=== PATIENT | male | born 1955 | race Caucasian/White ===

== ENCOUNTER 2017-11-08 21:17 | Emergency (ER) | payer MEDICARE, OTHER ==
[~2017-11-08] VITALS: Ht 198.1 cm; Wt 140.6 kg
[~2017-11-08 21:17] MED LIST: AMPYRA; AZAT50 PO; BACL20; CALCAVITD PO; CALCIUM CITRATE; COUMADIN; DIAZ10 PO; FISH OIL; FISH1000 PO; GABA300 PO; GABAPENTIN; LIORESAL; MEDICAL CANNABIS; OXYACE5T PO; SOLUMEDROL; TAMS.4ER PO; TIZA4 PO; TRAMADOL; TYSABRI; VALIUM; VIAGRA; VITAMIN B 12; WARF7.5 PO; ZANAFLEX
[2017-11-08 21:42] LABS: Source, Urine Clean Catch
[2017-11-08 21:47] LABS: Bilirubin, Urine Neg (Neg); Blood, Urine 4+ (Neg); Glucose Qualitative, Urine Neg (Neg); Ketones, Urine Neg (Neg); Leukocyte Esterase, Urine 3+ (Neg); Nitrite, Urine Neg (Neg); Protein, Urine Neg (Neg); Specific Gravity, Urine 1.015 (1.003-1.022); Urobilinogen, Urine NORM (Normal)
[2017-11-08 21:52] LABS: Appearance, Urine Clear (Clear); Color, Urine Yellow (P-Yellow)
[2017-11-08 21:54] LABS: White Blood Cells, Urine 25-50 /hpf (0-5)
[2017-11-08 21:55] LABS: Bacteria Mod /hpf; Red Blood Cells, Urine 0-2 /hpf (0-2); Squamous Epithelial Cells Rare /hpf (Few)
[2017-11-08] MEDS ORDERED: Cipro500 MG PO (22:40)
== END 2017-11-08 23:08 | disposition home or self-care (01) ==
LOC: ER 21:17
PROVIDERS: Emergency Medicine
DX: N39.0 Urinary tract infection, site not specified (principal); Z79.899 Other long term (current) drug therapy; Z79.891 Long term (current) use of opiate analgesic
CPT/HCPCS: 36415; 81001; 87077; 87086; 87186; 99283

== ENCOUNTER → 2020-01-24 | Outpatient (CLI) | payer MEDICARE, OTHER ==
[~2020-01-24] MED LIST changes: +CALCITRATE200 M1 PO; -CALCIUM CITRATE; -COUMADIN; +Cipro500 MG PO; +DIAZ5 PO; +DICLOFENAC SOD100 G1 TOP; -FISH OIL; +FISH OIL 1,2001 EAC1 PO; -GABAPENTIN; +Ketoconazole15 GM TOP; -LIORESAL; +LIORESAL I ITR; -VALIUM; -VITAMIN B 12; +VITAMIN B122500 MC2 PO; +VITAMIN D325 MC3 PO; +WARF5 PO; +[UNRECOGNIZED DRUG - OTHER] IV
[2020-01-24 16:14] LABS: Source, Urine Clean Catch
[2020-01-24 19:13] LABS: Bilirubin, Urine Neg (Neg); Blood, Urine 2+ (Neg); Glucose Qualitative, Urine Neg (Neg); Ketones, Urine Neg (Neg); Leukocyte Esterase, Urine Neg (Neg); Nitrite, Urine Neg (Neg); Protein, Urine Neg (Neg); Specific Gravity, Urine 1.005 (1.003-1.022); Urobilinogen, Urine NORM (Normal)
[2020-01-24 19:20] LABS: Appearance, Urine Clear (Clear); Color, Urine Yellow (P-Yellow)
[2020-01-24 19:21] LABS: Bacteria Few /hpf; Calcium Oxalate Crystals Few /hpf; Red Blood Cells, Urine 0-2 /hpf (0-2); Squamous Epithelial Cells Rare /hpf (Few); White Blood Cells, Urine 0-2 /hpf (0-5)
== END | disposition home or self-care (01) ==
LOC: LAB 16:12 → LAB SHORT 16:12 → EDSTATUS 01-23 15:45 → LAB FUT 01-23 15:45
PROVIDERS: Internal Medicine Hematology & Oncology
DX: R32 Unspecified urinary incontinence (principal)
CPT/HCPCS: 81001

== ENCOUNTER → 2020-05-07 | Outpatient (CLI) | payer MEDICARE, OTHER ==
[2020-05-07 10:53] LABS: International Normalized Ratio 1.44; Prothrombin Time Results 15.1 Sec (9.7-11.5)
== END | disposition home or self-care (01) ==
LOC: LAB SHORT 10:32 → LAB 10:32
PROVIDERS: Internal Medicine Hematology & Oncology
DX: D68.2 Hereditary deficiency of other clotting factors (principal)
CPT/HCPCS: 85610

== ENCOUNTER 2020-08-06 18:34 | Emergency (ER) | payer MEDICARE, OTHER ==
[~2020-08-06] VITALS: Ht 198.1 cm; Wt 131.5 kg
[~2020-08-06 18:34] MED LIST changes: -CEFD300 PO; -CRANBERRY500 M1 PO; -FISH OIL-VIT D1 EACH PO
[2020-08-06 19:47] LABS: BASOPHILS ABSOLUTE AUTO 0.04 K/mm3 (0.00-0.23); BASOPHILS PERCENT AUTO 0 % (0-2); EOSINOPHILS ABSOLUTE AUTO 0.06 K/mm3 (0.00-0.68); EOSINOPHILS PERCENT AUTO 1 % (0-6); Hematocrit 49.2 % (37.0-53.0); Hemoglobin 15.4 g/dL (13.5-17.5); IMMATURE GRAN ABSOLUTE AUTO 0.03 K/mm3 (0.00-0.10); IMMATURE GRAN PERCENT AUTO 0 % (0-1); LYMPHOCYTES ABSOLUTE AUTO 0.88 K/mm3 (0.84-5.20); LYMPHOCYTES PERCENT AUTO 8 % (21-46); MONOCYTES ABSOLUTE AUTO 1.09 K/mm3 (0.16-1.47); MONOCYTES PERCENT AUTO 10 % (4-13); Mean Corpuscular HGB 27.4 pg (26.0-34.0); Mean Corpuscular HGB Conc 31.3 g/dL (31.5-36.5); Mean Corpuscular Volume 87 fL (80-100); Mean Platelet Volume 11.1 fL (9.1-12.4); NEUTROPHILS ABSOLUTE AUTO 8.52 K/mm3 (1.96-9.15); NEUTROPHILS PERCENT AUTO 80 % (41-73); Platelet Count 162 K/mm3 (150-400); RDW Coefficient Variation 15.9 % (11.7-14.2); RDW Standard Deviation 51.2 fL (35.1-46.3); Red Blood Cell Count 5.63 M/mm3 (4.30-5.90); White Blood Cell Count 10.62 K/mm3 (4.00-11.30)
[2020-08-06 19:59] LABS: Alanine Aminotransfer (ALT/SGP 37 U/L (12-78); Albumin, Blood 3.3 g/dL (3.4-5.0); Albumin/Globulin Ratio 0.9 (0.8-1.8); Alk Phos 119 U/L (50-136); Anion Gap 2 mmol/L (6-16); Aspartate Aminotrans (AST/SGOT 22 U/L (12-37); Bilirubin, Total 0.9 mg/dL (0.1-1.0); Blood Urea Nitrogen 14 mg/dL (8-24); CO2, Blood 31 mmol/L (21-32); Calcium, Blood 9.1 mg/dL (8.5-10.1); Chloride, Blood 106 mmol/L (98-108); Creatinine, Blood 0.41 mg/dL (0.60-1.20); Globulin, Blood 3.7 g/dL (2.2-4.0); Glomerular Filtration Rate >60 (60-); Glucose, Blood 109 mg/dL (70-99); Potassium, Blood 4.4 mmol/L (3.5-5.5); Sodium, Blood 139 mmol/L (136-145)
[2020-08-06] MEDS ORDERED: CRANBERRY500 M1 PO (20:44)
[2020-08-06] MEDS ORDERED: FISH OIL-VIT D1 EACH PO (20:45)
[2020-08-06 21:44] LABS: Influenza A, PCR Negative (NEGATIVE); Influenza B, PCR Negative (NEGATIVE); Resp Syncytial Virus, PCR Negative (NEGATIVE); SARS-Cov-2 (COVID-19) PCR, MMC Negative (NEGATIVE)
[2020-08-06] MEDS ORDERED: CEFD300 PO (21:50)
== END 2020-08-06 22:35 | disposition home or self-care (01) ==
LOC: ER 18:34
PROVIDERS: Emergency Medicine
DX: N39.0 Urinary tract infection, site not specified (principal); Z79.899 Other long term (current) drug therapy; Z79.01 Long term (current) use of anticoagulants; Z86.711 Personal history of pulmonary embolism; Z20.822 Contact with and (suspected) exposure to COVID-19
CPT/HCPCS: 0241U; 36415; 71045; 80053; 81001; 85025; 87077; 87086; 87186; 96365; 99283-25; J0696

== ENCOUNTER → 2020-08-06 | Outpatient (CLI) | payer MEDICARE, OTHER ==
[~2020-08-06] MED LIST changes: +CEFD300 PO; +CRANBERRY500 M1 PO; +FISH OIL-VIT D1 EACH PO
[2020-08-06 15:16] LABS: Appearance, Urine Hazy (Clear); Bilirubin, Urine Neg (Neg); Blood, Urine 2+ (Neg); Color, Urine Yellow (P-Yellow); Glucose Qualitative, Urine Neg (Neg); Ketones, Urine Neg (Neg); Leukocyte Esterase, Urine 3+ (Neg); Nitrite, Urine Pos (Neg); Protein, Urine Neg (Neg); Urobilinogen, Urine NORM (Normal)
[2020-08-06 15:26] LABS: White Blood Cells, Urine TNTC /hpf (0-5)
[2020-08-06 15:27] LABS: Bacteria Many /hpf; Squamous Epithelial Cells Few /hpf (Few)
== END | disposition home or self-care (01) ==
LOC: PLD 10:00 → LAB SHORT 10:00 → LAB FUT 08-06 11:25
PROVIDERS: Internal Medicine Hematology & Oncology
DX: R32 Unspecified urinary incontinence (principal); R33.9 Retention of urine, unspecified; R50.9 Fever, unspecified
CPT/HCPCS: 81001; 87077; 87086; 87186

== ENCOUNTER → 2020-09-11 | Outpatient (CLI) | payer MEDICARE, OTHER ==
[~2020-09-11] MED LIST changes: +CEFD300 PO; +CRANBERRY500 M1 PO; +FISH OIL-VIT D1 EACH PO
[2020-09-11 13:39] LABS: Source, Urine Clean Catch
[2020-09-11 18:41] LABS: Appearance, Urine Hazy (Clear); Bilirubin, Urine Neg (Neg); Blood, Urine 4+ (Neg); Color, Urine Yellow (P-Yellow); Glucose Qualitative, Urine Neg (Neg); Ketones, Urine 1+ (Neg); Leukocyte Esterase, Urine 3+ (Neg); Nitrite, Urine Pos (Neg); Protein, Urine 1+ (Neg); Urobilinogen, Urine NORM (Normal)
[2020-09-11 18:49] LABS: Bacteria Many /hpf; Red Blood Cells, Urine 0-2 /hpf (0-2); Squamous Epithelial Cells Few /hpf (Few); White Blood Cells, Urine TNTC /hpf (0-5)
== END | disposition home or self-care (01) ==
LOC: LAB SHORT 13:37 → LAB 13:37
PROVIDERS: Internal Medicine Hematology & Oncology
DX: R53.81 Other malaise (principal)
CPT/HCPCS: 81001; 87086

== ENCOUNTER 2020-11-12 00:12 | Day surgery (SDC) | payer MEDICARE, OTHER | END 2020-11-12 22:52 | disposition home or self-care (01) | LOC: WOUND 00:12 | DX: L89.314 Pressure ulcer of right buttock, stage 4 (principal); G82.21 Paraplegia, complete | CPT/HCPCS: G0463 ==

== ENCOUNTER 2020-11-26 00:19 | Day surgery (SDC) | payer MEDICARE, OTHER | END 2020-11-26 22:58 | disposition home or self-care (01) | LOC: WOUND 00:19 | DX: L89.314 Pressure ulcer of right buttock, stage 4 (principal); G82.21 Paraplegia, complete ==

== ENCOUNTER 2020-12-10 00:37 | Day surgery (SDC) | payer MEDICARE, OTHER | END 2020-12-10 22:58 | disposition home or self-care (01) | LOC: WOUND 00:37 | DX: L89.314 Pressure ulcer of right buttock, stage 4 (principal); G82.21 Paraplegia, complete | CPT/HCPCS: G0463 ==

== ENCOUNTER 2020-12-17 00:24 | Day surgery (SDC) | payer MEDICARE, OTHER | END 2020-12-17 23:14 | disposition home or self-care (01) | LOC: WOUND 00:24 | DX: S31.819A Unspecified open wound of right buttock, initial encounter (principal); G82.21 Paraplegia, complete; X58.XXXA Exposure to other specified factors, initial encounter | CPT/HCPCS: A9270 ==

== ENCOUNTER 2020-12-24 00:38 | Day surgery (SDC) | payer MEDICARE, OTHER | END 2020-12-25 02:19 | disposition home or self-care (01) | LOC: WOUND 00:38 | DX: L89.314 Pressure ulcer of right buttock, stage 4 (principal); G82.21 Paraplegia, complete | CPT/HCPCS: A9270; G0463 ==

== ENCOUNTER 2020-12-31 00:35 | Day surgery (SDC) | payer MEDICARE, OTHER | END 2020-12-31 23:34 | disposition home or self-care (01) | LOC: WOUND 00:35 | DX: L89.314 Pressure ulcer of right buttock, stage 4 (principal); G82.21 Paraplegia, complete | CPT/HCPCS: A9270 ==

== ENCOUNTER 2021-01-08 04:18 | Day surgery (SDC) | payer MEDICARE, OTHER | END 2021-01-08 22:49 | disposition home or self-care (01) | LOC: WOUND 04:18 | DX: L89.314 Pressure ulcer of right buttock, stage 4 (principal); G82.21 Paraplegia, complete | CPT/HCPCS: A9270; G0463 ==

== ENCOUNTER 2021-01-14 07:00 | Day surgery (SDC) | payer MEDICARE, OTHER | END 2021-01-14 23:00 | disposition home or self-care (01) | LOC: WOUND 07:00 | DX: L89.314 Pressure ulcer of right buttock, stage 4 (principal); G82.21 Paraplegia, complete | CPT/HCPCS: G0463 ==

== ENCOUNTER 2021-01-21 01:10 | Day surgery (SDC) | payer MEDICARE, OTHER | END 2021-01-21 22:53 | disposition home or self-care (01) | LOC: WOUND 01:10 | DX: L89.314 Pressure ulcer of right buttock, stage 4 (principal); G82.21 Paraplegia, complete | CPT/HCPCS: A9270 ==

== ENCOUNTER 2021-01-28 02:41 | Day surgery (SDC) | payer MEDICARE, OTHER | END 2021-01-28 23:04 | disposition home or self-care (01) | LOC: WOUND 02:41 | DX: L89.313 Pressure ulcer of right buttock, stage 3 (principal); G82.21 Paraplegia, complete | CPT/HCPCS: A9270; G0463 ==

== ENCOUNTER 2021-02-04 09:30 | Day surgery (SDC) | payer MEDICARE, OTHER | END 2021-02-04 22:59 | disposition home or self-care (01) | LOC: WOUND 09:30 | DX: L89.313 Pressure ulcer of right buttock, stage 3 (principal); G82.21 Paraplegia, complete | CPT/HCPCS: A9270 ==

== ENCOUNTER → 2021-02-08 | Outpatient (CLI) | payer MEDICARE, OTHER ==
[2021-02-08 17:58] LABS: Appearance, Urine Clear (Clear); Bilirubin, Urine Neg (Neg); Blood, Urine 2+ (Neg); Color, Urine Yellow (P-Yellow); Glucose Qualitative, Urine Neg (Neg); Ketones, Urine Neg (Neg); Leukocyte Esterase, Urine Neg (Neg); Nitrite, Urine Neg (Neg); Protein, Urine Neg (Neg); Specific Gravity, Urine 1.005 (1.003-1.022); Urobilinogen, Urine NORM (Normal)
[2021-02-08 18:06] LABS: Bacteria Few /hpf; Squamous Epithelial Cells Few /hpf (Few); White Blood Cells, Urine 0-2 /hpf (0-5)
== END | disposition home or self-care (01) ==
LOC: LAB 14:40 → LAB SHORT 14:40
PROVIDERS: Internal Medicine Hematology & Oncology
DX: R50.9 Fever, unspecified (principal); R32 Unspecified urinary incontinence
CPT/HCPCS: 81001

== ENCOUNTER 2021-02-11 00:10 | Day surgery (SDC) | payer MEDICARE, OTHER | END 2021-02-11 22:54 | disposition home or self-care (01) | LOC: WOUND 00:10 | DX: L89.313 Pressure ulcer of right buttock, stage 3 (principal); G82.21 Paraplegia, complete | CPT/HCPCS: G0463; J0696 ==

== ENCOUNTER 2021-02-18 02:42 | Day surgery (SDC) | payer MEDICARE, OTHER | END 2021-02-18 23:57 | disposition home or self-care (01) | LOC: WOUND 02:42 | DX: L89.313 Pressure ulcer of right buttock, stage 3 (principal); L03.115 Cellulitis of right lower limb; G82.21 Paraplegia, complete | CPT/HCPCS: A9270; G0463; J0696 ==

== ENCOUNTER 2021-02-25 02:15 | Day surgery (SDC) | payer MEDICARE, OTHER | END 2021-02-25 23:25 | disposition home or self-care (01) | LOC: WOUND 02:15 | DX: L89.313 Pressure ulcer of right buttock, stage 3 (principal); G82.21 Paraplegia, complete; L03.115 Cellulitis of right lower limb | CPT/HCPCS: G0463 ==

== ENCOUNTER 2021-03-13 02:19 | Day surgery (SDC) | payer MEDICARE, OTHER | END 2021-03-13 23:46 | disposition home or self-care (01) | LOC: WOUND 02:19 | DX: L89.313 Pressure ulcer of right buttock, stage 3 (principal); G82.20 Paraplegia, unspecified; L03.115 Cellulitis of right lower limb | CPT/HCPCS: A9270 ==

== ENCOUNTER 2021-03-26 03:52 | Day surgery (SDC) | payer MEDICARE, OTHER | END 2021-03-26 23:42 | disposition home or self-care (01) | LOC: WOUND 03:52 | DX: L89.313 Pressure ulcer of right buttock, stage 3 (principal); G82.21 Paraplegia, complete; L03.115 Cellulitis of right lower limb | CPT/HCPCS: A9270 ==

== ENCOUNTER 2021-04-15 03:04 | Day surgery (SDC) | payer MEDICARE, OTHER | END 2021-04-15 22:52 | disposition home or self-care (01) | LOC: WOUND 03:04 | DX: L89.313 Pressure ulcer of right buttock, stage 3 (principal); L03.115 Cellulitis of right lower limb; G82.21 Paraplegia, complete | CPT/HCPCS: A9270; G0463 ==

== ENCOUNTER 2021-05-06 06:01 | Day surgery (SDC) | payer MEDICARE, OTHER | END 2021-05-06 23:10 | disposition home or self-care (01) | LOC: WOUND 06:01 | DX: L89.313 Pressure ulcer of right buttock, stage 3 (principal); G82.21 Paraplegia, complete; L03.115 Cellulitis of right lower limb | CPT/HCPCS: A9270; G0463 ==

== ENCOUNTER 2021-06-10 04:12 | Day surgery (SDC) | payer MEDICARE, OTHER | END 2021-06-10 23:08 | disposition home or self-care (01) | LOC: WOUND 04:12 | DX: L89.313 Pressure ulcer of right buttock, stage 3 (principal); L03.115 Cellulitis of right lower limb; G82.21 Paraplegia, complete | CPT/HCPCS: A9270; G0463 ==

== ENCOUNTER 2021-07-12 07:36 | Day surgery (SDC) | payer MEDICARE, OTHER | END 2021-07-12 23:48 | disposition home or self-care (01) | LOC: WOUND 07:36 | DX: L89.313 Pressure ulcer of right buttock, stage 3 (principal); G82.21 Paraplegia, complete; L03.115 Cellulitis of right lower limb | CPT/HCPCS: A9270; G0463 ==

== ENCOUNTER 2021-07-29 03:20 | Day surgery (SDC) | payer MEDICARE, OTHER | END 2021-07-29 23:28 | disposition home or self-care (01) | LOC: WOUND 03:20 | DX: S31.819A Unspecified open wound of right buttock, initial encounter (principal); L89.313 Pressure ulcer of right buttock, stage 3; G82.21 Paraplegia, complete; L03.115 Cellulitis of right lower limb; X58.XXXA Exposure to other specified factors, initial encounter | CPT/HCPCS: A9270; G0463 ==

== ENCOUNTER 2021-08-12 02:58 | Day surgery (SDC) | payer MEDICARE, OTHER | END 2021-08-12 23:24 | disposition home or self-care (01) | LOC: WOUND 02:58 | DX: S31.819A Unspecified open wound of right buttock, initial encounter (principal); L89.313 Pressure ulcer of right buttock, stage 3; G82.21 Paraplegia, complete; L03.115 Cellulitis of right lower limb; Z99.3 Dependence on wheelchair; X58.XXXA Exposure to other specified factors, initial encounter | CPT/HCPCS: A9270; G0463 ==

== ENCOUNTER 2021-08-26 01:36 | Day surgery (SDC) | payer MEDICARE, OTHER | END 2021-08-26 23:25 | disposition home or self-care (01) | LOC: WOUND 01:36 | DX: S31.819A Unspecified open wound of right buttock, initial encounter (principal); L89.313 Pressure ulcer of right buttock, stage 3; G82.21 Paraplegia, complete; L03.115 Cellulitis of right lower limb; X58.XXXA Exposure to other specified factors, initial encounter | CPT/HCPCS: A9270; G0463 ==

== ENCOUNTER 2021-09-09 05:48 | Day surgery (SDC) | payer MEDICARE, OTHER | END 2021-09-09 23:27 | disposition home or self-care (01) | LOC: WOUND 05:48 | DX: L89.313 Pressure ulcer of right buttock, stage 3 (principal); G82.21 Paraplegia, complete; L03.115 Cellulitis of right lower limb | CPT/HCPCS: A9270; G0463 ==

== ENCOUNTER → 2021-09-11 | Outpatient (CLI) | payer MEDICARE, OTHER ==
[2021-09-11 15:00] LABS: Source, Urine Clean Catch
[2021-09-11 19:00] LABS: Bilirubin, Urine Neg (Neg); Blood, Urine 4+ (Neg); Glucose Qualitative, Urine Neg (Neg); Ketones, Urine Neg (Neg); Leukocyte Esterase, Urine Neg (Neg); Nitrite, Urine Neg (Neg); Protein, Urine Neg (Neg); Urobilinogen, Urine 1+ (Normal)
[2021-09-11 19:08] LABS: Appearance, Urine Hazy (Clear); Color, Urine Pale Yellow (P-Yellow)
[2021-09-11 19:09] LABS: Bacteria Rare /hpf; Squamous Epithelial Cells Rare /hpf (Few); White Blood Cells, Urine 0-2 /hpf (0-5)
[2021-09-11 19:29] LABS: BASOPHILS ABSOLUTE AUTO 0.04 K/mm3 (0.00-0.23); BASOPHILS PERCENT AUTO 0 % (0-2); EOSINOPHILS ABSOLUTE AUTO 0.03 K/mm3 (0.00-0.68); EOSINOPHILS PERCENT AUTO 0 % (0-6); Hemoglobin 16.7 g/dL (13.5-17.5); IMMATURE GRAN ABSOLUTE AUTO 0.04 K/mm3 (0.00-0.10); IMMATURE GRAN PERCENT AUTO 0 % (0-1); LYMPHOCYTES ABSOLUTE AUTO 0.44 K/mm3 (0.84-5.20); LYMPHOCYTES PERCENT AUTO 4 % (21-46); MONOCYTES ABSOLUTE AUTO 0.52 K/mm3 (0.16-1.47); MONOCYTES PERCENT AUTO 5 % (4-13); Mean Corpuscular HGB 29.7 pg (26.0-34.0); Mean Corpuscular HGB Conc 32.7 g/dL (31.5-36.5); Mean Corpuscular Volume 91 fL (80-100); Mean Platelet Volume 11.4 fL (9.1-12.4); NEUTROPHILS ABSOLUTE AUTO 9.54 K/mm3 (1.96-9.15); NEUTROPHILS PERCENT AUTO 90 % (41-73); Platelet Count 136 K/mm3 (150-400); RDW Coefficient Variation 14.2 % (11.7-14.2); RDW Standard Deviation 47.7 fL (35.1-46.3); Red Blood Cell Count 5.63 M/mm3 (4.30-5.90); White Blood Cell Count 10.61 K/mm3 (4.00-11.30)
[2021-09-11 19:47] LABS: Alanine Aminotransfer (ALT/SGP 32 U/L (12-78); Albumin, Blood 3.5 g/dL (3.4-5.0); Albumin/Globulin Ratio 0.9 (0.8-1.8); Alk Phos 107 U/L (50-136); Anion Gap 6 mmol/L (6-16); Aspartate Aminotrans (AST/SGOT 21 U/L (12-37); Bilirubin, Total 1.3 mg/dL (0.1-1.0); Blood Urea Nitrogen 11 mg/dL (8-24); Bun/Creatinine Ratio 31.8 (12.0-20.0); CO2, Blood 33 mmol/L (21-32); Calcium, Blood 9.3 mg/dL (8.5-10.1); Chloride, Blood 96 mmol/L (98-108); Creatinine, Blood 0.35 mg/dL (0.60-1.20); Globulin, Blood 3.8 g/dL (2.2-4.0); Glomerular Filtration Rate >60 (60-); Glucose, Blood 119 mg/dL (70-99); Potassium, Blood 4.1 mmol/L (3.5-5.5); Sodium, Blood 135 mmol/L (136-145); Total Protein, Blood 7.3 g/dL (6.4-8.2)
== END | disposition home or self-care (01) ==
LOC: LAB 14:55 → LAB SHORT 14:55
PROVIDERS: Internal Medicine Hematology & Oncology; Psychiatry & Neurology Neurology
DX: R30.0 Dysuria (principal)
CPT/HCPCS: 80053; 81001; 85025

== ENCOUNTER 2021-09-23 01:18 | Day surgery (SDC) | payer MEDICARE, OTHER | END 2021-09-23 23:31 | disposition home or self-care (01) | LOC: WOUND 01:18 | DX: L89.313 Pressure ulcer of right buttock, stage 3 (principal); G82.21 Paraplegia, complete; L03.115 Cellulitis of right lower limb | CPT/HCPCS: A9270; G0463 ==

== ENCOUNTER 2021-10-07 00:57 | Day surgery (SDC) | payer MEDICARE, OTHER | END 2021-10-07 23:13 | disposition home or self-care (01) | LOC: WOUND 00:57 | DX: L89.313 Pressure ulcer of right buttock, stage 3 (principal); G82.21 Paraplegia, complete; L03.115 Cellulitis of right lower limb | CPT/HCPCS: A9270 ==

== ENCOUNTER 2021-10-21 01:46 | Day surgery (SDC) | payer MEDICARE, OTHER | END 2021-10-21 22:46 | disposition home or self-care (01) | LOC: WOUND 01:46 | DX: S31.819A Unspecified open wound of right buttock, initial encounter (principal); L89.313 Pressure ulcer of right buttock, stage 3; G82.21 Paraplegia, complete; L03.115 Cellulitis of right lower limb | CPT/HCPCS: A9270; G0463 ==

== ENCOUNTER 2021-11-04 01:19 | Day surgery (SDC) | payer MEDICARE, OTHER | END 2021-11-04 22:52 | disposition home or self-care (01) | LOC: WOUND 01:19 | DX: L89.313 Pressure ulcer of right buttock, stage 3 (principal); G82.21 Paraplegia, complete; L03.115 Cellulitis of right lower limb | CPT/HCPCS: A9270; G0463 ==

== ENCOUNTER 2021-11-18 01:09 | Day surgery (SDC) | payer MEDICARE, OTHER | END 2021-11-18 22:42 | disposition home or self-care (01) | LOC: WOUND 01:09 | DX: L89.313 Pressure ulcer of right buttock, stage 3 (principal); L03.115 Cellulitis of right lower limb; G82.21 Paraplegia, complete | CPT/HCPCS: A9270; G0463 ==

== ENCOUNTER 2021-12-04 02:30 | Day surgery (SDC) | payer MEDICARE, OTHER | END 2021-12-04 23:40 | disposition home or self-care (01) | LOC: WOUND 02:30 | DX: L89.313 Pressure ulcer of right buttock, stage 3 (principal); L03.115 Cellulitis of right lower limb; G82.21 Paraplegia, complete | CPT/HCPCS: A9270; G0463 ==

== ENCOUNTER 2021-12-23 08:00 | Day surgery (SDC) | payer MEDICARE, OTHER | END 2021-12-23 23:59 | disposition home or self-care (01) | LOC: WOUND 08:00 | DX: L89.313 Pressure ulcer of right buttock, stage 3 (principal); G82.21 Paraplegia, complete; L03.115 Cellulitis of right lower limb | CPT/HCPCS: A9270; G0463 ==

== ENCOUNTER 2022-01-13 00:28 | Day surgery (SDC) | payer MEDICARE, OTHER | END 2022-01-13 23:06 | disposition home or self-care (01) | LOC: WOUND 00:28 | DX: L89.313 Pressure ulcer of right buttock, stage 3 (principal); G82.21 Paraplegia, complete; L03.115 Cellulitis of right lower limb | CPT/HCPCS: A9270; G0463 ==

== ENCOUNTER 2022-01-27 05:03 | Day surgery (SDC) | payer MEDICARE, OTHER | END 2022-01-27 23:25 | disposition home or self-care (01) | LOC: WOUND 05:03 | DX: T81.89XA Other complications of procedures, not elsewhere classified, initial encounter (principal); L89.313 Pressure ulcer of right buttock, stage 3; L03.90 Cellulitis, unspecified; G82.21 Paraplegia, complete | CPT/HCPCS: A9270; G0463 ==

== ENCOUNTER 2022-02-10 01:01 | Day surgery (SDC) | payer MEDICARE, OTHER | END 2022-02-10 23:18 | disposition home or self-care (01) | LOC: WOUND 01:01 | DX: L89.313 Pressure ulcer of right buttock, stage 3 (principal); G82.21 Paraplegia, complete; L03.115 Cellulitis of right lower limb | CPT/HCPCS: A9270; G0463 ==

== ENCOUNTER 2022-02-24 00:20 | Day surgery (SDC) | payer MEDICARE, OTHER | END 2022-02-25 00:30 | disposition home or self-care (01) | LOC: WOUND 00:20 | DX: L89.313 Pressure ulcer of right buttock, stage 3 (principal); G82.21 Paraplegia, complete; L03.115 Cellulitis of right lower limb | CPT/HCPCS: A9270; G0463 ==

== ENCOUNTER 2022-03-24 00:18 | Day surgery (SDC) | payer MEDICARE, OTHER | END 2022-03-24 22:54 | disposition home or self-care (01) | LOC: WOUND 00:18 | DX: T81.89XA Other complications of procedures, not elsewhere classified, initial encounter (principal); L89.313 Pressure ulcer of right buttock, stage 3; G82.21 Paraplegia, complete | CPT/HCPCS: A9270; G0463 ==

== ENCOUNTER 2022-04-14 01:33 | Day surgery (SDC) | payer MEDICARE, OTHER | END 2022-04-14 23:23 | disposition home or self-care (01) | LOC: WOUND 01:33 | DX: L89.313 Pressure ulcer of right buttock, stage 3 (principal); G82.21 Paraplegia, complete | CPT/HCPCS: A9270 ==

== ENCOUNTER 2022-05-05 00:17 | Day surgery (SDC) | payer MEDICARE, OTHER | END 2022-05-05 22:45 | disposition home or self-care (01) | LOC: WOUND 00:17 | DX: L89.313 Pressure ulcer of right buttock, stage 3 (principal); G82.21 Paraplegia, complete | CPT/HCPCS: A9270; G0463 ==

== ENCOUNTER → 2022-05-14 | Outpatient (CLI) | payer MEDICARE, OTHER | LOC: LAB SHORT 15:48 → LAB 15:48 | DX: L02.411 Cutaneous abscess of right axilla (principal) | CPT/HCPCS: 87070; 87075; 87205 ==

== ENCOUNTER 2022-05-26 01:54 | Day surgery (SDC) | payer MEDICARE, OTHER | END 2022-05-26 23:23 | disposition home or self-care (01) | LOC: WOUND 01:54 | DX: L89.313 Pressure ulcer of right buttock, stage 3 (principal); G82.21 Paraplegia, complete | CPT/HCPCS: A9270; G0463 ==

== ENCOUNTER 2022-06-09 01:03 | Day surgery (SDC) | payer MEDICARE, OTHER | END 2022-06-09 22:53 | disposition home or self-care (01) | LOC: WOUND 01:03 | DX: L89.313 Pressure ulcer of right buttock, stage 3 (principal); G82.21 Paraplegia, complete; S41.101D Unspecified open wound of right upper arm, subsequent encounter | CPT/HCPCS: A9270; G0463 ==

== ENCOUNTER 2022-06-23 00:55 | Day surgery (SDC) | payer MEDICARE, OTHER | END 2022-06-23 22:47 | disposition home or self-care (01) | LOC: WOUND 00:55 | DX: T81.89XA Other complications of procedures, not elsewhere classified, initial encounter (principal); L08.9 Local infection of the skin and subcutaneous tissue, unspecified; G82.21 Paraplegia, complete; L89.313 Pressure ulcer of right buttock, stage 3 | CPT/HCPCS: A9270 ==

== ENCOUNTER 2022-07-28 01:09 | Day surgery (SDC) | payer MEDICARE, OTHER | END 2022-07-28 22:51 | disposition home or self-care (01) | LOC: WOUND 01:09 | DX: L89.313 Pressure ulcer of right buttock, stage 3 (principal); G82.21 Paraplegia, complete | CPT/HCPCS: A9270 ==

== ENCOUNTER 2022-08-11 00:17 | Day surgery (SDC) | payer MEDICARE, OTHER | END 2022-08-11 22:55 | disposition home or self-care (01) | LOC: WOUND 00:17 | DX: L89.313 Pressure ulcer of right buttock, stage 3 (principal); S41.101A Unspecified open wound of right upper arm, initial encounter; G82.21 Paraplegia, complete | CPT/HCPCS: A9270; G0463 ==

== ENCOUNTER 2022-08-25 00:25 | Day surgery (SDC) | payer MEDICARE, OTHER | END 2022-08-25 22:38 | disposition home or self-care (01) | LOC: WOUND 00:25 | DX: T81.89XA Other complications of procedures, not elsewhere classified, initial encounter (principal); L89.313 Pressure ulcer of right buttock, stage 3; G82.21 Paraplegia, complete | CPT/HCPCS: A9270; G0463 ==

== ENCOUNTER 2022-09-08 01:12 | Day surgery (SDC) | payer MEDICARE, OTHER | END 2022-09-08 22:48 | disposition home or self-care (01) | LOC: WOUND 01:12 | DX: T81.89XA Other complications of procedures, not elsewhere classified, initial encounter (principal); L08.9 Local infection of the skin and subcutaneous tissue, unspecified; L89.313 Pressure ulcer of right buttock, stage 3; G82.21 Paraplegia, complete; S41.101D Unspecified open wound of right upper arm, subsequent encounter | CPT/HCPCS: A9270; G0463 ==

== ENCOUNTER 2022-09-22 00:14 | Day surgery (SDC) | payer MEDICARE, OTHER | END 2022-09-22 23:10 | disposition home or self-care (01) | LOC: WOUND 00:14 | DX: T81.89XA Other complications of procedures, not elsewhere classified, initial encounter (principal); L08.9 Local infection of the skin and subcutaneous tissue, unspecified; L89.313 Pressure ulcer of right buttock, stage 3; G82.21 Paraplegia, complete; S41.101D Unspecified open wound of right upper arm, subsequent encounter | CPT/HCPCS: A9270; G0463 ==

== ENCOUNTER 2022-10-06 00:29 | Day surgery (SDC) | payer MEDICARE, OTHER | END 2022-10-06 22:41 | disposition home or self-care (01) | LOC: WOUND 00:29 | DX: T81.89XA Other complications of procedures, not elsewhere classified, initial encounter (principal); L89.313 Pressure ulcer of right buttock, stage 3; G82.21 Paraplegia, complete; S41.101D Unspecified open wound of right upper arm, subsequent encounter | CPT/HCPCS: A9270 ==

== ENCOUNTER 2022-10-20 00:45 | Day surgery (SDC) | payer MEDICARE, OTHER | END 2022-10-20 22:36 | disposition home or self-care (01) | LOC: WOUND 00:45 | DX: T81.89XA Other complications of procedures, not elsewhere classified, initial encounter (principal); L89.313 Pressure ulcer of right buttock, stage 3; G82.21 Paraplegia, complete; S41.101D Unspecified open wound of right upper arm, subsequent encounter | CPT/HCPCS: A9270; G0463 ==

== ENCOUNTER 2022-11-03 08:00 | Day surgery (SDC) | payer MEDICARE, OTHER | END 2022-11-03 23:59 | disposition home or self-care (01) | LOC: WOUND 08:00 | DX: L89.313 Pressure ulcer of right buttock, stage 3 (principal); G82.21 Paraplegia, complete; S41.101D Unspecified open wound of right upper arm, subsequent encounter; X58.XXXD Exposure to other specified factors, subsequent encounter; L08.9 Local infection of the skin and subcutaneous tissue, unspecified | CPT/HCPCS: G0463 ==

== ENCOUNTER 2022-11-24 01:21 | Day surgery (SDC) | payer MEDICARE, OTHER | END 2022-11-24 22:51 | disposition home or self-care (01) | LOC: WOUND 01:21 | DX: L89.313 Pressure ulcer of right buttock, stage 3 (principal); S41.101D Unspecified open wound of right upper arm, subsequent encounter; G82.21 Paraplegia, complete; X58.XXXD Exposure to other specified factors, subsequent encounter | CPT/HCPCS: A9270; G0463 ==

== ENCOUNTER 2022-12-15 03:09 | Day surgery (SDC) | payer MEDICARE, OTHER | END 2022-12-15 23:00 | disposition home or self-care (01) | LOC: WOUND 03:09 | DX: S31.819D Unspecified open wound of right buttock, subsequent encounter (principal); S41.101D Unspecified open wound of right upper arm, subsequent encounter; L89.313 Pressure ulcer of right buttock, stage 3; G82.21 Paraplegia, complete; X58.XXXD Exposure to other specified factors, subsequent encounter | CPT/HCPCS: A9270; G0463 ==

== ENCOUNTER 2023-01-29 04:20 | Day surgery (SDC) | payer MEDICARE, OTHER | END 2023-01-29 22:57 | disposition home or self-care (01) | LOC: WOUND 04:20 | DX: S31.819D Unspecified open wound of right buttock, subsequent encounter (principal); G89.21 Chronic pain due to trauma | CPT/HCPCS: A9270; G0463 ==

== ENCOUNTER 2023-02-26 00:38 | Day surgery (SDC) | payer MEDICARE, OTHER | END 2023-02-26 22:42 | disposition home or self-care (01) | LOC: WOUND 00:38 | DX: T81.89XA Other complications of procedures, not elsewhere classified, initial encounter (principal); L89.313 Pressure ulcer of right buttock, stage 3; G82.21 Paraplegia, complete; Y83.8 Other surgical procedures as the cause of abnormal reaction of the patient, or of later complication, without mention of misadventure at the time of the procedure | CPT/HCPCS: A9270; G0463 ==

== ENCOUNTER 2023-03-12 01:22 | Day surgery (SDC) | payer MEDICARE, OTHER | END 2023-03-12 22:37 | disposition home or self-care (01) | LOC: WOUND 01:22 | DX: T81.31XA Disruption of external operation (surgical) wound, not elsewhere classified, initial encounter (principal); L89.313 Pressure ulcer of right buttock, stage 3; G82.21 Paraplegia, complete; Y83.8 Other surgical procedures as the cause of abnormal reaction of the patient, or of later complication, without mention of misadventure at the time of the procedure | CPT/HCPCS: G0463 ==

== ENCOUNTER 2023-04-09 08:00 | Day surgery (SDC) | payer MEDICARE, OTHER | END 2023-04-09 23:59 | disposition home or self-care (01) | LOC: WOUND 08:00 | DX: L89.313 Pressure ulcer of right buttock, stage 3 (principal); G82.21 Paraplegia, complete; T81.32XD Disruption of internal operation (surgical) wound, not elsewhere classified, subsequent encounter; Y83.8 Other surgical procedures as the cause of abnormal reaction of the patient, or of later complication, without mention of misadventure at the time of the procedure | CPT/HCPCS: A9270; G0463 ==

== ENCOUNTER 2023-04-23 03:24 | Day surgery (SDC) | payer MEDICARE, OTHER | END 2023-04-23 22:40 | disposition home or self-care (01) | LOC: WOUND 03:24 | DX: L89.313 Pressure ulcer of right buttock, stage 3 (principal); T81.31XD Disruption of external operation (surgical) wound, not elsewhere classified, subsequent encounter; G82.21 Paraplegia, complete; Y83.8 Other surgical procedures as the cause of abnormal reaction of the patient, or of later complication, without mention of misadventure at the time of the procedure | CPT/HCPCS: A9270; G0463 ==

== ENCOUNTER 2023-05-07 05:14 | Day surgery (SDC) | payer MEDICARE, OTHER | END 2023-05-07 22:38 | disposition home or self-care (01) | LOC: WOUND 05:14 | DX: L89.313 Pressure ulcer of right buttock, stage 3 (principal); G82.21 Paraplegia, complete; S41.101D Unspecified open wound of right upper arm, subsequent encounter; X58.XXXD Exposure to other specified factors, subsequent encounter | CPT/HCPCS: A9270; G0463 ==

== ENCOUNTER 2023-05-21 02:24 | Day surgery (SDC) | payer MEDICARE, OTHER | END 2023-05-21 22:50 | disposition home or self-care (01) | LOC: WOUND 02:24 | DX: L89.313 Pressure ulcer of right buttock, stage 3 (principal); G82.21 Paraplegia, complete; S41.101D Unspecified open wound of right upper arm, subsequent encounter; X58.XXXD Exposure to other specified factors, subsequent encounter | CPT/HCPCS: A9270; G0463 ==

== ENCOUNTER 2023-05-25 12:32 | Day surgery (SDC) | payer MEDICARE, OTHER ==
[~2023-05-25] VITALS: Ht 195.6 cm; Wt 125.6 kg
--- NOTE | 2023-05-25 14:20 | NUR ---
05/25/23 1420 Vince Reeves CASE INCOMPLETE DUE TO POOR PREP, FLEX SIGMOIDOSCOPY COMPLETED. VS STABLE FOLLOWING INTIAL SEDATION BY DR BENJAMIN.
[2023-05-25 15:21] VITALS: BP 110/92
== END 2023-05-25 15:05 | disposition home or self-care (01) ==
LOC: ORSCSDS 12:32
PROVIDERS: Internal Medicine Gastroenterology
PROC: 0DJD8ZZ Inspection of Lower Intestinal Tract, Via Natural or Artificial Opening Endoscopic (ICD-10-PCS; principal; 2023-05-25 12:45)
DX: R19.4 Change in bowel habit (principal); Z86.010 Personal history of colon polyps; Z80.0 Family history of malignant neoplasm of digestive organs; I10 Essential (primary) hypertension; E66.9 Obesity, unspecified; Z68.32 Body mass index [BMI] 32.0-32.9, adult; Z87.891 Personal history of nicotine dependence; Z79.899 Other long term (current) drug therapy; Z79.01 Long term (current) use of anticoagulants
CPT/HCPCS: J2704; J7120

== ENCOUNTER 2023-06-04 02:27 | Day surgery (SDC) | payer MEDICARE, OTHER | END 2023-06-04 22:46 | disposition home or self-care (01) | LOC: WOUND 02:27 | DX: L89.313 Pressure ulcer of right buttock, stage 3 (principal); G82.21 Paraplegia, complete; S41.101D Unspecified open wound of right upper arm, subsequent encounter; X58.XXXD Exposure to other specified factors, subsequent encounter | CPT/HCPCS: A9270; G0463 ==

== ENCOUNTER 2023-06-18 02:52 | Day surgery (SDC) | payer MEDICARE, OTHER | END 2023-06-18 22:56 | disposition home or self-care (01) | LOC: WOUND 02:52 | DX: L89.313 Pressure ulcer of right buttock, stage 3 (principal); S41.101D Unspecified open wound of right upper arm, subsequent encounter; X58.XXXD Exposure to other specified factors, subsequent encounter; G82.21 Paraplegia, complete | CPT/HCPCS: A9270; G0463 ==

== ENCOUNTER 2023-07-09 04:51 | Day surgery (SDC) | payer MEDICARE, OTHER ==
[~2023-07-09 04:51] MED LIST changes: +B-121000 MC4 PO; +Betamethasone D60 ML; +CALCIUM CIT 311 EAC7 PO; +CRANBERRY450 M1 PO; -CRANBERRY500 M1 PO; +GABA300; +OMEGA PO; -VITAMIN D325 MC3 PO; +VITAMIN D350 MC3 PO; +WHEAT DEXTRIN PO; +[UNRECOGNIZED DRUG - OTHER] PO
== END 2023-07-09 22:48 | disposition home or self-care (01) ==
LOC: WOUND 04:51
DX: L89.313 Pressure ulcer of right buttock, stage 3 (principal); G82.21 Paraplegia, complete; S41.101D Unspecified open wound of right upper arm, subsequent encounter; X58.XXXD Exposure to other specified factors, subsequent encounter
CPT/HCPCS: A9270; G0463

== ENCOUNTER 2023-07-13 11:04 | Day surgery (SDC) | payer MEDICARE, OTHER ==
[~2023-07-13] VITALS: Ht 195.6 cm; Wt 127.0 kg
[2023-07-13 13:59] VITALS: BP 120/76
--- NOTE | 2023-07-13 14:02 | NUR ---
07/13/23 1402 NOHELIA GOLDEN UPON ARRIVAL TO STEP DOWN, FAMILY MEMBER - MIGUEL WAS BROUGHT BACK TO [facility]. CLEAN ATTENDS PLACED PRIOR TO TX TO STEP DOWN. DANNA LEON ASSISTED IN POSITIONING, AND OPALJER LIFT TX TO PERSONAL WHEELCHAIR. PT DENIES PAIN/NAUSEA. VSS ON ROOM AIR, LUNGS CLEAR TO AUSCULTATION. ENGAGED IN POST PROCEDURE TEACHING AFTER PT TX TO WHEELCHAIR. DC W/.
== END 2023-07-13 14:00 | disposition home or self-care (01) ==
LOC: ORSCSDS 11:04
PROVIDERS: Internal Medicine Gastroenterology
PROC: 0DBE8ZX Excision of Large Intestine, Via Natural or Artificial Opening Endoscopic, Diagnostic (ICD-10-PCS; principal; 2023-07-13 12:30)
PROC: 0DBM8ZX Excision of Descending Colon, Via Natural or Artificial Opening Endoscopic, Diagnostic (ICD-10-PCS; principal; 2023-07-13 12:30)
PROC: 0DBH8ZX Excision of Cecum, Via Natural or Artificial Opening Endoscopic, Diagnostic (ICD-10-PCS; principal; 2023-07-13 12:30)
DX: R19.4 Change in bowel habit (principal); D12.0 Benign neoplasm of cecum; D12.4 Benign neoplasm of descending colon; Z86.010 Personal history of colon polyps; Z80.0 Family history of malignant neoplasm of digestive organs; G35 Multiple sclerosis; D68.51 Activated protein C resistance; Z86.711 Personal history of pulmonary embolism; Z99.3 Dependence on wheelchair; Z79.01 Long term (current) use of anticoagulants; Z79.899 Other long term (current) drug therapy
CPT/HCPCS: 88305; J2704; J7120

== ENCOUNTER 2023-07-23 02:01 | Day surgery (SDC) | payer MEDICARE, OTHER | END 2023-07-23 22:54 | disposition home or self-care (01) | LOC: WOUND 02:01 | DX: S31.819D Unspecified open wound of right buttock, subsequent encounter (principal); S41.101D Unspecified open wound of right upper arm, subsequent encounter; G82.21 Paraplegia, complete | CPT/HCPCS: A9270; G0463 ==

== ENCOUNTER 2023-08-06 01:35 | Day surgery (SDC) | payer MEDICARE, OTHER | END 2023-08-06 23:17 | disposition home or self-care (01) | LOC: WOUND 01:35 | DX: T81.31XD Disruption of external operation (surgical) wound, not elsewhere classified, subsequent encounter (principal); L89.313 Pressure ulcer of right buttock, stage 3; G82.21 Paraplegia, complete; S41.101D Unspecified open wound of right upper arm, subsequent encounter; X58.XXXD Exposure to other specified factors, subsequent encounter; Y83.8 Other surgical procedures as the cause of abnormal reaction of the patient, or of later complication, without mention of misadventure at the time of the procedure | CPT/HCPCS: A9270 ==

== ENCOUNTER 2023-08-20 01:45 | Day surgery (SDC) | payer MEDICARE, OTHER ==
[2023-08-20] MEDS ORDERED: Lidocaine HCl 4% Cream 5 GM ONE (10:34)
== END 2023-08-20 22:45 | disposition home or self-care (01) ==
LOC: WOUND 01:45
DX: S41.101D Unspecified open wound of right upper arm, subsequent encounter (principal); G82.21 Paraplegia, complete; L89.313 Pressure ulcer of right buttock, stage 3
CPT/HCPCS: A6213; A9270; G0463

== ENCOUNTER 2023-11-05 02:56 | Day surgery (SDC) | payer MEDICARE, OTHER ==
[2023-11-05] MEDS ORDERED: Lidocaine HCl 4% Cream 5 GM ONE (08:33)
== END 2023-11-05 22:42 | disposition home or self-care (01) ==
LOC: WOUND 02:56
DX: L89.313 Pressure ulcer of right buttock, stage 3 (principal); S41.101D Unspecified open wound of right upper arm, subsequent encounter; X58.XXXD Exposure to other specified factors, subsequent encounter; G82.21 Paraplegia, complete
CPT/HCPCS: A9270; G0463

== ENCOUNTER 2024-01-08 02:25 | Day surgery (SDC) | payer MEDICARE, OTHER ==
[2024-01-08] MEDS ORDERED: Lidocaine HCl 4% Cream 5 GM ONE (08:43)
== END 2024-01-08 23:13 | disposition home or self-care (01) ==
LOC: WOUND 02:25
DX: L89.313 Pressure ulcer of right buttock, stage 3 (principal); G82.21 Paraplegia, complete
CPT/HCPCS: A9270; G0463

== ENCOUNTER 2024-01-21 02:28 | Day surgery (SDC) | payer MEDICARE, OTHER ==
[2024-01-21] MEDS ORDERED: Lidocaine HCl 4% Cream 5 GM ONE (08:40)
== END 2024-01-22 22:46 | disposition home or self-care (01) ==
LOC: WOUND 02:28
DX: L89.313 Pressure ulcer of right buttock, stage 3 (principal); G82.21 Paraplegia, complete
CPT/HCPCS: A9270; G0463

== ENCOUNTER 2024-02-02 01:52 | Day surgery (SDC) | payer MEDICARE, OTHER ==
[2024-02-02] MEDS ORDERED: Lidocaine HCl 4% Cream 5 GM ONE (08:32)
== END 2024-02-02 23:14 | disposition home or self-care (01) ==
LOC: WOUND 01:52
DX: T81.31XD Disruption of external operation (surgical) wound, not elsewhere classified, subsequent encounter (principal); L89.153 Pressure ulcer of sacral region, stage 3; L89.313 Pressure ulcer of right buttock, stage 3; G82.21 Paraplegia, complete; S41.101D Unspecified open wound of right upper arm, subsequent encounter; Y83.8 Other surgical procedures as the cause of abnormal reaction of the patient, or of later complication, without mention of misadventure at the time of the procedure; X58.XXXD Exposure to other specified factors, subsequent encounter
CPT/HCPCS: A9270; G0463

== ENCOUNTER 2024-02-23 03:48 | Day surgery (SDC) | payer MEDICARE, OTHER ==
[2024-02-23] MEDS ORDERED: Lidocaine HCl 4% Cream 5 GM ONE (08:59)
[2024-02-23] MEDS ORDERED: Silver Nitr/Potassium Nitrate 1 EA APPL ONE (08:59)
== END 2024-02-23 23:15 | disposition home or self-care (01) ==
LOC: WOUND 03:48
DX: L89.152 Pressure ulcer of sacral region, stage 2 (principal); L89.313 Pressure ulcer of right buttock, stage 3; G82.21 Paraplegia, complete; T81.31XA Disruption of external operation (surgical) wound, not elsewhere classified, initial encounter; S41.101D Unspecified open wound of right upper arm, subsequent encounter; X58.XXXD Exposure to other specified factors, subsequent encounter; Y83.8 Other surgical procedures as the cause of abnormal reaction of the patient, or of later complication, without mention of misadventure at the time of the procedure
CPT/HCPCS: A9270

== ENCOUNTER 2024-03-29 03:10 | Day surgery (SDC) | payer MEDICARE, OTHER ==
[2024-03-29] MEDS ORDERED: Lidocaine HCl 4% Cream 5 GM ONE (08:40)
== END 2024-03-29 23:00 | disposition home or self-care (01) ==
LOC: WOUND 03:10
DX: L89.313 Pressure ulcer of right buttock, stage 3 (principal); G82.21 Paraplegia, complete; S41.101D Unspecified open wound of right upper arm, subsequent encounter; X58.XXXD Exposure to other specified factors, subsequent encounter
CPT/HCPCS: A6196; A9270; G0463

== ENCOUNTER 2024-04-12 03:19 | Day surgery (SDC) | payer MEDICARE, OTHER ==
[2024-04-12] MEDS ORDERED: Lidocaine HCl 4% Cream 5 GM ONE (09:34)
== END 2024-04-12 22:53 ==
LOC: WOUND 03:19
DX: L89.313 Pressure ulcer of right buttock, stage 3 (principal); G82.21 Paraplegia, complete; S41.101D Unspecified open wound of right upper arm, subsequent encounter; X58.XXXD Exposure to other specified factors, subsequent encounter
CPT/HCPCS: A9270; G0463

== ENCOUNTER 2024-04-26 04:11 | Day surgery (SDC) | payer MEDICARE, OTHER ==
[2024-04-26] MEDS ORDERED: Lidocaine HCl 4% Cream 5 GM ONE (08:39)
== END 2024-04-26 23:10 | disposition home or self-care (01) ==
LOC: WOUND 04:11
DX: L89.313 Pressure ulcer of right buttock, stage 3 (principal); G82.21 Paraplegia, complete; S41.101D Unspecified open wound of right upper arm, subsequent encounter; X58.XXXD Exposure to other specified factors, subsequent encounter
CPT/HCPCS: A9270; G0463

== ENCOUNTER 2024-05-10 01:28 | Day surgery (SDC) | payer MEDICARE, OTHER ==
[2024-05-10] MEDS ORDERED: Lidocaine HCl 4% Cream 5 GM ONE (09:02)
== END 2024-05-10 23:00 | disposition home or self-care (01) ==
LOC: WOUND 01:28
DX: T81.31XD Disruption of external operation (surgical) wound, not elsewhere classified, subsequent encounter (principal); G82.21 Paraplegia, complete
CPT/HCPCS: A9270; G0463

== ENCOUNTER 2024-06-07 04:34 | Day surgery (SDC) | payer MEDICARE, OTHER ==
[2024-06-07] MEDS ORDERED: Lidocaine HCl 4% Cream 5 GM ONE (08:47)
[2024-06-07] MEDS ORDERED: Miconazole Nitrate 2% 85 GM PWD ONE (08:48)
== END 2024-06-07 23:50 | disposition home or self-care (01) ==
LOC: WOUND 04:34
DX: L89.313 Pressure ulcer of right buttock, stage 3 (principal); G82.21 Paraplegia, complete; S41.101D Unspecified open wound of right upper arm, subsequent encounter; X58.XXXD Exposure to other specified factors, subsequent encounter
CPT/HCPCS: A9270; G0463

== ENCOUNTER 2024-06-21 04:12 | Day surgery (SDC) | payer MEDICARE, OTHER ==
[2024-06-21] MEDS ORDERED: Lidocaine HCl 4% Cream 5 GM ONE (08:48)
== END 2024-06-21 23:00 | disposition home or self-care (01) ==
LOC: WOUND 04:12
DX: T81.31XD Disruption of external operation (surgical) wound, not elsewhere classified, subsequent encounter (principal); L89.313 Pressure ulcer of right buttock, stage 3; G82.21 Paraplegia, complete; S41.101D Unspecified open wound of right upper arm, subsequent encounter; X58.XXXD Exposure to other specified factors, subsequent encounter; Y83.8 Other surgical procedures as the cause of abnormal reaction of the patient, or of later complication, without mention of misadventure at the time of the procedure
CPT/HCPCS: A9270; G0463

== ENCOUNTER 2024-07-19 08:21 | Day surgery (SDC) | payer MEDICARE, OTHER ==
[2024-07-19] MEDS ORDERED: Lidocaine HCl 4% Cream 5 GM ONE (08:53)
== END 2024-07-19 23:00 | disposition home or self-care (01) ==
LOC: WOUND 08:21
DX: T81.31XD Disruption of external operation (surgical) wound, not elsewhere classified, subsequent encounter (principal); G82.21 Paraplegia, complete
CPT/HCPCS: A9270; G0463

== ENCOUNTER 2024-08-02 05:22 | Day surgery (SDC) | payer MEDICARE, OTHER ==
[2024-08-02] MEDS ORDERED: Lidocaine HCl 4% Cream 5 GM ONE (08:24)
== END 2024-08-02 23:00 | disposition home or self-care (01) ==
LOC: WOUND 05:22
DX: T81.31XD Disruption of external operation (surgical) wound, not elsewhere classified, subsequent encounter (principal); G82.21 Paraplegia, complete
CPT/HCPCS: A9270; G0463

== ENCOUNTER 2024-08-30 00:26 | Day surgery (SDC) | payer MEDICARE, OTHER ==
[2024-08-30] MEDS ORDERED: Lidocaine HCl 4% Cream 5 GM ONE (08:30)
[2024-08-30] MEDS ORDERED: Silver Nitr/Potassium Nitrate 1 EA APPL ONE (08:54)
== END 2024-08-30 23:00 | disposition home or self-care (01) ==
LOC: WOUND 00:26
DX: T81.31XA Disruption of external operation (surgical) wound, not elsewhere classified, initial encounter (principal); L89.313 Pressure ulcer of right buttock, stage 3; G82.21 Paraplegia, complete; S41.101D Unspecified open wound of right upper arm, subsequent encounter; X58.XXXD Exposure to other specified factors, subsequent encounter; Y83.8 Other surgical procedures as the cause of abnormal reaction of the patient, or of later complication, without mention of misadventure at the time of the procedure
CPT/HCPCS: A9270

== ENCOUNTER 2024-09-13 03:28 | Day surgery (SDC) | payer MEDICARE, OTHER ==
[2024-09-13] MEDS ORDERED: Lidocaine HCl 4% Cream 5 GM ONE (08:23)
== END 2024-09-13 23:08 | disposition home or self-care (01) ==
LOC: WOUND 03:28
DX: L89.313 Pressure ulcer of right buttock, stage 3 (principal); G82.21 Paraplegia, complete; Z79.01 Long term (current) use of anticoagulants; Z79.899 Other long term (current) drug therapy
CPT/HCPCS: A9270; G0463

== ENCOUNTER 2024-09-27 02:55 | Day surgery (SDC) | payer MEDICARE, OTHER ==
[2024-09-27] MEDS ORDERED: Lidocaine HCl 4% Cream 5 GM ONE (08:26)
== END 2024-09-27 22:55 | disposition home or self-care (01) ==
LOC: WOUND 02:55
DX: L89.313 Pressure ulcer of right buttock, stage 3 (principal); G82.21 Paraplegia, complete; S41.101A Unspecified open wound of right upper arm, initial encounter
CPT/HCPCS: A9270; G0463

== ENCOUNTER → 2024-10-11 | Day surgery (SDC) | payer MEDICARE, OTHER ==
[~2024-10-11] MED LIST changes: +Lidocaine HCl 4% Cream 5 GM ONE
== END ==
LOC: WOUND 02:26
DX: L89.313 Pressure ulcer of right buttock, stage 3 (principal); T81.31XD Disruption of external operation (surgical) wound, not elsewhere classified, subsequent encounter; G82.21 Paraplegia, complete; S41.101D Unspecified open wound of right upper arm, subsequent encounter; Y83.8 Other surgical procedures as the cause of abnormal reaction of the patient, or of later complication, without mention of misadventure at the time of the procedure; X58.XXXD Exposure to other specified factors, subsequent encounter
CPT/HCPCS: A9270; G0463

== ENCOUNTER 2024-11-08 02:19 | Day surgery (SDC) | payer MEDICARE, OTHER ==
[~2024-11-08 02:19] MED LIST changes: -Lidocaine HCl 4% Cream 5 GM ONE
[2024-11-08] MEDS ORDERED: Lidocaine HCl 4% Cream 5 GM ONE (08:26)
== END 2024-11-08 23:34 | disposition home or self-care (01) ==
LOC: WOUND 02:19
DX: L89.314 Pressure ulcer of right buttock, stage 4 (principal); G82.21 Paraplegia, complete
CPT/HCPCS: A9270; G0463

== ENCOUNTER 2024-11-22 00:49 | Day surgery (SDC) | payer MEDICARE, OTHER ==
[2024-11-22] MEDS ORDERED: Lidocaine HCl 4% Cream 5 GM ONE (08:23)
[2024-11-22] MEDS ORDERED: Silver Nitr/Potassium Nitrate 1 EA APPL ONE (08:42)
== END 2024-11-22 23:00 ==
LOC: WOUND 00:49
DX: L89.314 Pressure ulcer of right buttock, stage 4 (principal); G82.21 Paraplegia, complete; S41.101A Unspecified open wound of right upper arm, initial encounter; X58.XXXA Exposure to other specified factors, initial encounter
CPT/HCPCS: A9270

== ENCOUNTER 2025-01-03 02:18 | Day surgery (SDC) | payer MEDICARE, OTHER ==
[2025-01-03] MEDS ORDERED: Lidocaine HCl 4% Cream 5 GM ONE (08:23)
== END 2025-01-03 23:00 | disposition home or self-care (01) ==
LOC: WOUND 02:18
DX: L89.314 Pressure ulcer of right buttock, stage 4 (principal); G82.21 Paraplegia, complete; S41.101D Unspecified open wound of right upper arm, subsequent encounter
CPT/HCPCS: A9270; G0463

== ENCOUNTER 2025-01-31 01:21 | Day surgery (SDC) | payer MEDICARE, OTHER ==
[2025-01-31] MEDS ORDERED: Lidocaine HCl 4% Cream 5 GM ONE (08:31)
== END 2025-01-31 23:00 | disposition home or self-care (01) ==
LOC: WOUND 01:21
DX: L89.314 Pressure ulcer of right buttock, stage 4 (principal); G82.21 Paraplegia, complete
CPT/HCPCS: A9270

== ENCOUNTER 2025-05-02 01:19 | Day surgery (SDC) | payer MEDICARE, OTHER ==
[2025-05-02] MEDS ORDERED: Lidocaine HCl 4% Cream 5 GM ONE (08:43)
== END 2025-05-02 22:35 | disposition home or self-care (01) ==
LOC: WOUND 01:19
DX: L89.314 Pressure ulcer of right buttock, stage 4 (principal); G82.21 Paraplegia, complete
CPT/HCPCS: A9270; G0463

== ENCOUNTER 2025-05-30 01:43 | Day surgery (SDC) | payer MEDICARE, OTHER ==
[2025-05-30] MEDS ORDERED: Lidocaine HCl 4% Cream 5 GM ONE (08:29)
== END 2025-05-30 22:00 | disposition home or self-care (01) ==
LOC: WOUND 01:43
DX: L89.314 Pressure ulcer of right buttock, stage 4 (principal); G82.21 Paraplegia, complete
CPT/HCPCS: A9270; G0463